=== PATIENT | male | born 1960 | race African-American/Black ===

== ENCOUNTER 2017-01-02 17:07 | Emergency (ER) | payer OTHER ==
--- NOTE | 2017-01-02 18:09 | PHYS DOC ---
Past Medical History Past Medical History: No Pertinent History Past Surgical History: No Surgical History Alcohol Use: None Drug Use: None Adult General Chief Complaint Chief Complaint: NOSEBLEED [facility] HPI Patient is a 56 year old bleeding nose from the right naris. He states that he had taken an aspirin lost night. He currently states that the bleeding has stopped. He denies any history of high blood pressure as though his blood pressure is elevated at this time. He denies any nasal congestion denies any runny noses denies any headaches chest pain shortness of air difficulty breathing. Review of Systems Review of Systems Constitutional: Denies fever or chills [] Eyes: Denies change in visual acuity, redness, or eye pain [] HENT: Denies nasal congestion or sore throat. Complaint of nosebleed Respiratory: Denies cough or shortness of breath [] Cardiovascular: No additional information not addressed in HPI [] GI: Denies abdominal pain, nausea, vomiting, bloody stools or diarrhea [] : Denies dysuria or hematuria [] Musculoskeletal: Denies back pain or joint pain [] Integument: Denies rash or skin lesions [] Neurologic: Denies headache, focal weakness or sensory changes [] Endocrine: Denies polyuria or polydipsia [] Allergies Allergies Allergies Coded Allergies Type Severity Reaction Last Updated Verified No Known Drug Allergies 10/20/13 No Physical Exam Physical Exam Constitutional: Well developed, well nourished, no acute distress, non-toxic appearance. [] HENT: Normocephalic, atraumatic, bilateral external ears normal, oropharynx moist, no oral exudates, nose normal. Left naris appears to be red and inflamed , right nares appears to have blood clots noted. No active bleeding noted at this time. Throat appears to be clear with no drainage no discharge no erythematous, no exudate noted. Eyes: PERRLA, EOMI, conjunctiva normal, no discharge. [] Neck: Normal range of motion, no tenderness, supple, no stridor. [] Cardiovascular:Heart rate regular rhythm, no murmur [] Lungs & Thorax: Bilateral breath sounds clear to auscultation [] Skin: Warm, dry, no erythema, no rash. [] Back: No tenderness Extremities: No tenderness, no cyanosis, no clubbing, ROM intact, no edema. [] Neurologic: Alert and oriented X 3, normal motor function, normal sensory function, no focal deficits noted. [] Psychologic: Affect normal, judgement normal, mood normal. [] Current Patient Data Vital Signs Vital Signs Date Time Temp Pulse Resp B/P (MAP) Pulse Ox O2 Delivery O2 Flow Rate FiO2 01/02/17 19:06 87 18 161/106 (124) 97 Room Air 01/02/17 17:27 98.3 98.3 Lab Values Laboratory Tests Test 01/02/17 18:45 White Blood Count 6.6 x10^3/uL (4.0-11.0) Red Blood Count 4.32 x10^6/uL (4.30-5.70) Hemoglobin 14.7 g/dL (13.0-17.5) Hematocrit 42.6 % (39.0-53.0) Mean Corpuscular Volume 99 fL (79-100) Mean Corpuscular Hemoglobin 34 pg (25-35) Mean Corpuscular Hemoglobin Concent 35 g/dL (31-37) Red Cell Distribution Width 14.2 % (11.5-14.5) Platelet Count 175 x10^3/uL (140-400) Neutrophils (%) (Auto) 72 % (31-73) Lymphocytes (%) (Auto) 20 % (24-48) L Monocytes (%) (Auto) 7 % (0-9) Eosinophils (%) (Auto) 0 % (0-3) Basophils (%) (Auto) 0 % (0-3) Neutrophils # (Auto) 4.8 x10^3uL (1.8-7.7) Lymphocytes # (Auto) 1.3 x10^3/uL (1.0-4.8) Monocytes # (Auto) 0.4 x10^3/uL (0.0-1.1) Eosinophils # (Auto) 0.0 x10^3/uL (0.0-0.7) Basophils # (Auto) 0.0 x10^3/uL (0.0-0.2) Laboratory Tests 01/02/17 18:45 EKG EKG [] Radiology/Procedures Radiology/Procedures [] Course & Med Decision Making Course & Med Decision Making Pertinent Labs and Imaging studies reviewed. (See chart for details) Patient denies any headache, shortness of air difficulty breathing chest pain or chest discomfort. Denies any swelling in his lower extremities. No bloody nose noted for this patient while here in the emergency department. PT/INR is normal CBC is normal. Patient will be discharged home with recommendations to monitor blood pressure and follow-up with his primary care physician. Patient was also instructed to return back to the emergency department if he develops increased bloody nose. Patient was provided with signs and symptoms to return back and precautions. Patient agrees with discharge instructions treatment regimens and follow-up recommendations. [] Dragon Disclaimer Dragon Disclaimer This electronic medical record was generated, in whole or in part, using a voice recognition dictation system. Departure Departure Impression: Primary Impression: Epistaxis Disposition: HOME, SELF-CARE Condition: STABLE Referrals: NO PCP (PCP) Patient Instructions: Nosebleed, [id number] Additional Instructions: Activity as tolerated. Monitor your blood pressure at home and follow-up with your primary care physician in regards to elevation of your blood pressure. She developed a bloody nose again apply pressure to thepolice 20 minutes. If that does not subside place ice packs to the parents as well and return to emergency department. Follow-up to primary care physician in the next 3-5 days. Return back to emergency prior signs and symptoms of become worse. BK PETERSON APRN Jan 02, 2017 18:09
[2017-01-02 19:00] LABS: BASO % 0 % (0-3); EOS % 0 % (0-3); HEMATOCRIT 42.6 % (39.0-53.0); HEMOGLOBIN 14.7 g/dL (13.0-17.5); LYMPH # 1.3 x10^3/uL (1.0-4.8); LYMPH % 20 % (24-48); MEAN CORPUSCULAR HEMOGLOBIN 34 pg (25-35); MEAN CORPUSCULAR HGB CONC 35 g/dL (31-37); MEAN CORPUSCULAR VOLUME 99 fL (79-100); MONO % 7 % (0-9); NEUT % 72 % (31-73); PLATELET COUNT 175 x10^3/uL (140-400); RED BLOOD COUNT 4.32 x10^6/uL (4.30-5.70); RED CELL DISTRIBUTION WIDTH 14.2 % (11.5-14.5); WHITE BLOOD COUNT 6.6 x10^3/uL (4.0-11.0)
[2017-01-02 19:06] VITALS: BP 161/106
[2017-01-02 19:17] LABS: INR 1.1 (0.8-1.1); PROTHROMBIN TIME PATIENT 13.2 SEC (11.7-14.0)
[2017-01-02] MEDS ORDERED: AMLO5TAB4 PO (19:36)
== END 2017-01-02 19:38 | disposition home or self-care (01) ==
LOC: ER 17:07
DX: R04.0 Epistaxis (principal)
CPT/HCPCS: 36415; 85027; 85610; 99284

== ENCOUNTER 2017-01-03 12:15 | Emergency (ER) | payer OTHER ==
[~2017-01-03] VITALS: Ht 190.5 cm; Wt 89.4 kg
[~2017-01-03 12:15] MED LIST: AMLO5TAB4 PO
[2017-01-03 12:32] VITALS: BP 135/92
--- NOTE | 2017-01-03 13:29 | PHYS DOC ---
Past Medical History Past Medical History: Hypertension Past Surgical History: No Surgical History Alcohol Use: None Drug Use: None Adult General Chief Complaint Chief Complaint: NOSEBLEED HPI HPI Patient is a 56 year old male who was brought by a friend to the ED with the complaint of nosebleed. The patient was seen yesterday with a nosebleed which had stopped by the time he got here. His blood pressure was a little elevated. He was started on blood pressure medication which she didn't fill and has taken as directed. Last evening, he had some nosebleed that stopped on its own in a few minutes. Today, he developed some nosebleed again and decided to come back to be seen again. By the time he got here, his nose had stopped bleeding. Patient does not take any blood thinners. He denies any bleeding elsewhere. He has no other complaints. Review of Systems Review of Systems Constitutional: Denies fever or chills [] Eyes: Denies change in visual acuity, redness, or eye pain [] HENT: As in history of present illness Respiratory: Denies cough or shortness of breath [] Cardiovascular: Denies chest pain Current Medications Current Medications Current Medications Medications (Trade) Dose Ordered Sig/Bebo Start Time Stop Time Status Last Admin Dose Admin Oxymetazoline HCl (Afrin) 2 spray 1X ONCE 01/03/17 13:30 01/03/17 13:31 DC 01/03/17 13:34 2 SPRAY Silver Nitrate/ Potassium Nitrate 1 each 1X ONCE 01/03/17 13:30 01/03/17 13:31 DC 01/03/17 13:35 1 EACH Tetracaine HCl (Tetracaine) 1 drop 1X ONCE 01/03/17 13:30 01/03/17 13:31 DC 01/03/17 13:35 1 DROP Allergies Allergies Allergies Coded Allergies Type Severity Reaction Last Updated Verified No Known Drug Allergies 10/20/13 No Physical Exam Physical Exam Constitutional: Well developed, well nourished, no acute distress, non-toxic appearance. Alert, mentating normally, no bleeding at this time. HENT: Normocephalic, atraumatic, bilateral external ears normal, external nose normal, inspection of right naris shows a recently bleeding area on the anterior aspect of the right septum at Kiesselbach's plexus, normal in appearance except for a small blood clot. Eyes: conjunctiva normal, no discharge. [] Neck: Normal range of motion, no stridor. [] Skin: Warm, dry, no erythema, no rash. [] Extremities: No tenderness, no cyanosis, no clubbing, ROM intact, no edema. [] Neurologic: Alert and oriented X 3, normal motor function, normal sensory function, no focal deficits noted. [] Current Patient Data Vital Signs Vital Signs Date Time Temp Pulse Resp B/P (MAP) Pulse Ox O2 Delivery O2 Flow Rate FiO2 01/03/17 12:32 98.2 100 20 96 Room Air 98.2 EKG EKG [] Radiology/Procedures Radiology/Procedures Procedure: Epistaxis treatment. Tetracaine was placed on the septum and allowed to work for a few minutes. Silver nitrate stick was used to cauterize the area of recent bleeding. The patient tolerated the procedure well. There is no further epistaxis after the procedure. [] Course & Med Decision Making Course & Med Decision Making Pertinent Labs and Imaging studies reviewed. (See chart for details) 56-year-old male who returns for nose bleed which has now stopped on its own. I educated the patient on management of nosebleed. See instructions for plan. I sent him home with a plastic nose clamp and showed them how to use it should epistaxis recur. [] Dragon Disclaimer Dragon Disclaimer This electronic medical record was generated, in whole or in part, using a voice recognition dictation system. Departure Departure Impression: Primary Impression: Epistaxis Disposition: HOME, SELF-CARE Condition: IMPROVED Referrals: NO PCP (PCP) Patient Instructions: Nosebleed, [id number] Additional Instructions: As we discussed, once a nosebleed starts, it tends to continue to go off and on for a few days because the blood vessel is very close to the surface. Today, we cauterized the blood vessel which might help keep it from happening again. Try to not blow your nose, don't pick your nose, don't put anything up your nose , because that might disturb it and make it bleed again. If bleeding starts again, do this. 1. Blow your nose to get the clots out. 2. Put 2 sprays of decongestant nasal spray at the side of your nose that is bleeding. 3. Immediately put the clamp on your nose and leave it on for 15-20 minutes. 4. After 20 minutes, you may remove the clamp and see if the bleeding has stopped. 5. If it is still bleeding, repeat the steps above with the sprays and the clamp If you are not able to get it stopped, return to emergency. OLIVERIO ROLDAN MD Jan 03, 2017 13:29
[2017-01-03] MEDS ORDERED: SILVER NITRATE STICK TP ONE (13:30)
[2017-01-03] MEDS ORDERED: OXYMETAZOLINE 0.05% NASAL SPRAY 30ML BOTTLE. NS ONE (13:30)
[2017-01-03] MEDS ORDERED: TETRACAINE 0.5% OPHTH SOLUTION 4ML BOTTLE. OD ONE (13:30)
== END 2017-01-03 13:48 | disposition home or self-care (01) ==
LOC: ER 12:15
DX: R04.0 Epistaxis (principal); I10 Essential (primary) hypertension
CPT/HCPCS: 30901; 99284-25

== ENCOUNTER 2018-07-22 10:31 | Day surgery (SDC) | payer OTHER ==
[~2018-07-22 10:31] MED LIST changes: +HYDROmorphone 2 MG/ML VIAL IV PRN; +IV RINGERS,LACTATED 1000ML 1,000 ML IV SCH; +LIDOCAINE 1% PF 2 ML VIAL. ID PRN; +LIDOCAINE 2% PF Vial for OR 5 ML VIAL. ONE; +MORPHINE SULFATE 4 MG/ML VIAL. IV PRN; +OMEG1CAP27 PO; +ONDANSETRON PF 4 MG/2 ML VIAL. IV PRN; +PROCHLORPERAZINE 10 MG/2 ML VIAL. IV PRN; +PROPOFOL 20 ML IV ONE; +fentaNYL PF VIAL 100 MCG/2 ML VIAL IV PRN
[2018-07-22] MEDS ORDERED: silver sulfADIAZINE 1% CREAM 25GM TUBE. TP ONE (12:42)
[2018-07-22] MEDS ORDERED: MIDAZOLAM HCL/PF 2 MG/2 ML VIAL. ONE (13:07)
[2018-07-22] MEDS ORDERED: SEVOFLURANE 16 TO 30 MINUTES. IH ONE (13:17)
[2018-07-22] MEDS ORDERED: DEXAMETHASONE SOD PHOS 20 MG/5 ML VIAL. ONE (13:17)
[2018-07-22] MEDS ORDERED: ONDANSETRON PF 4 MG/2 ML VIAL. ONE (13:17)
[2018-07-22] MEDS ORDERED: LIDOCAINE 1% 20 ML VIAL. ONE (13:21)
[2018-07-22] MEDS ORDERED: NEOMY/BACITR/POLYMYXIN OINT PACKET. TP ONE ×2 (13:28→13:31)
--- NOTE | 2018-07-22 13:32 | PDOC4 ---
OPERATIVE NOTE Date: Date: Jul 22, 2018 Pre-Op Diagnosis: penis wart Post-Op Diagnosis: same Procedure Performed: co2 laser excision of penis warts Surgeon: Anesthesia Type: lma Blood Loss: 0ml Specimans Obtained: wart Findings: penis warts Complications: none ASHLEE TURCIOS MD Jul 22, 2018 13:32
--- NOTE | 2018-07-22 13:35 | DISCH ---
DISCHARGE INSTRUCTIONS Condition on Discharge Condition on Discharge: Stable Wound Incision Care Wound/Incision Care: No wound care needed, Other, see below Wound Care Equipment: Dressings (remove dressing tomorrow) Contacting the DRTammy after DC Call your doctor for: Concerns you may have Follow-Up Follow up with: dr. cerna 2 weeks Treatment/Equipment after DC Adaptive Equipment Issued: None (remove dressing tomorrow am) ASHLEE CERNA MD Jul 22, 2018 13:35
--- NOTE | 2018-07-22 14:17 | OP ---
DATE OF SURGERY: 07/22/2018 PREOPERATIVE DIAGNOSIS: Penis wart. POSTOPERATIVE DIAGNOSIS: Penis wart. PROCEDURE: CO2 laser excision of warts. CONDITION: Stable. COMPLICATIONS: None. SURGEON: Lisa Blake MD. SPECIMEN: Penis warts. DESCRIPTION OF PROCEDURE: The patient was taken back to the procedure room and placed supine position per the protocol. He was prepped and draped in usual sterile fashion. A 10 mL of lidocaine 2% was placed as a penis nerve block. There were 3-4 penis warts, each were grabbed individually and were excised with a laser fiber with suction on the whole time. There was excellent hemostasis, good cosmesis. The patient tolerated the procedure well. Topical antibiotic was applied with some Kerlix dressing. He may remove it in the morning. The patient was awakened and taken to PACU in stable condition. LISA BLAKE MD DR: BONNY/nts JOB#: [id number] / [id number]
[2018-07-22 14:30] VITALS: BP 156/96
--- NOTE | 2018-07-23 15:09 | PATHOLOGY ---
[facility] Accession Number: [id number] . 01 Material submitted: . PENILE WART . 01 Clinical history: . Warts . 02 Diagnosis: Skin, penile lesion excision: - Condyloma. - Chronic inflammation, focal. [facility]/07/23/2018 . 02 Comment: There is no evidence of malignancy. ([facility]PM:[facility] 07/23/2018) . 02 Electronically signed: . Henri Ann MD, Pathologist NPI- [id number] . 01 Gross description: . The specimen is received in formalin, labeled "Kyle, Haseeb, penile wart", is an irregular fragment of friable tissue measuring 0.8 x 0.4 x 0.3 cm. The specimen is inked black,longitudinally bisected and entirely submitted in A1. ([facility]; 07/22/2018) [facility] . 02 Pathologist provided ICD-10: A63.0, N48.29 . 02 CPT . 872537 Specimen Comment: A courtesy copy of this report has been sent to Specimen Comment: [phone]. Specimen Comment: Report sent to Performed at: [facility] [address], [place] [id number] MD Kamran Pollard MD Phone: [phone] Performed at: [facility] [address] [place], [place] [id number] MD Henri Ann MD Phone: [phone]
== END 2018-07-22 14:45 | disposition home or self-care (01) ==
LOC: SURG 10:31
PROVIDERS: ATTEND Urology
DX: A63.0 Anogenital (venereal) warts (principal); N48.29 Other inflammatory disorders of penis; I10 Essential (primary) hypertension; Z82.49 Family history of ischemic heart disease and other diseases of the circulatory system; Z72.89 Other problems related to lifestyle
CPT/HCPCS: 54057; 88305; A7015; J0690; J1100; J2001; J2250; J2405; J2704; J0696; A4461

== ENCOUNTER 2020-10-24 16:17 | Emergency (ER) | payer OTHER ==
[~2020-10-24] VITALS: Ht 191.8 cm; Wt 86.0 kg
[~2020-10-24 16:17] MED LIST changes: -HYDROmorphone 2 MG/ML VIAL IV PRN; -IV RINGERS,LACTATED 1000ML 1,000 ML IV SCH; -LIDOCAINE 1% PF 2 ML VIAL. ID PRN; -LIDOCAINE 2% PF Vial for OR 5 ML VIAL. ONE; -MORPHINE SULFATE 4 MG/ML VIAL. IV PRN; -ONDANSETRON PF 4 MG/2 ML VIAL. IV PRN; -PROCHLORPERAZINE 10 MG/2 ML VIAL. IV PRN; -PROPOFOL 20 ML IV ONE; -fentaNYL PF VIAL 100 MCG/2 ML VIAL IV PRN
[2020-10-24 18:00] VITALS: BP 144/91
[2020-10-24] MEDS ORDERED: NAPR-514 PO (19:46)
[2020-10-24] MEDS ORDERED: CYCL10TA2 PO (19:46)
--- NOTE | 2020-10-24 19:46 | ED.ADGEN ---
Past Medical History Past Medical History: Hypertension Past Surgical History: No Surgical History Smoking Status: Current Every Day Smoker Alcohol Use: None Drug Use: None General Adult EDM: Chief Complaint: BACK PAIN OR INJURY HPI: HPI: Patient is a 60 year old [f__sex] who presents with [] Review of Systems: Review of Systems: Constitutional: Denies fever or chills. [] Eyes: Denies change in visual acuity. [] HENT: Denies nasal congestion or sore throat. [] Respiratory: Denies cough or shortness of breath. [] Cardiovascular: Denies chest pain or edema. [] GI: Denies abdominal pain, nausea, vomiting, bloody stools or diarrhea. [] : Denies dysuria. [] Musculoskeletal: Denies back pain or joint pain. [] Integument: Denies rash. [] Neurologic: Denies headache, focal weakness or sensory changes. [] Endocrine: Denies polyuria or polydipsia. [] Lymphatic: Denies swollen glands. [] Psychiatric: Denies depression or anxiety. [] Allergies: Allergies: Allergies Coded Allergies Type Severity Reaction Last Updated Verified No Known Drug Allergies 07/22/18 No Physical Exam: PE: Constitutional: Well developed, well nourished, no acute distress, non-toxic appearance. [] HENT: Normocephalic, atraumatic, bilateral external ears normal, oropharynx moist, no oral exudates, nose normal. [] Eyes: PERRLA, EOMI, conjunctiva normal, no discharge. [] Neck: Normal range of motion, no tenderness, supple, no stridor. [] Cardiovascular:Heart rate regular rhythm, no murmur [] Lungs & Thorax: Bilateral breath sounds clear to auscultation [] Abdomen: Bowel sounds normal, soft, no tenderness, no masses, no pulsatile masses. [] Skin: Warm, dry, no erythema, no rash. [] Back: No tenderness, no CVA tenderness. [] Extremities: No tenderness, no cyanosis, no clubbing, ROM intact, no edema. [] Neurologic: Alert and oriented X 3, normal motor function, normal sensory function, no focal deficits noted. [] Psychologic: Affect normal, judgement normal, mood normal. [] EKG: EKG: [] Heart Score: Risk Factors: Risk Factors: DM, Current or recent (<one month) smoker, HTN, HLP, family history of CAD, obesity. Risk Scores: Score 0 - 3: 2.5% MACE over next 6 weeks - Discharge Home Score 4 - 6: 20.3% MACE over next 6 weeks - Admit for Clinical Observation Score 7 - 10: 72.7% MACE over next 6 weeks - Early Invasive Strategies Radiology/Procedures: Radiology/Procedures: [] Course & Med Decision Making: Course & Med Decision Making Pertinent Labs and Imaging studies reviewed. (See chart for details) [] Dragon Disclaimer: Dragon Disclaimer: This electronic medical record was generated, in whole or in part, using a voice recognition dictation system. Departure Departure Impression: Primary Impression: Low back pain Disposition: HOME / SELF CARE / HOMELESS Condition: STABLE Referrals: UNKNOWN PCP NAME (PCP) Patient Instructions: Back Exercises, [id number], Back Pain, Adult, [id number] Additional Instructions: Fill the prescription(s) and use as directed. Apply heat or ice for to sore areas as needed for comfort. Activity as tolerated. Follow up with your primary care doctor this week if symptoms persist, return to the ER if symptoms worsen or you develop a fever. Scripts Naproxen (NAPROXEN) 500 Mg Tablet 1 TAB PO BID PRN for PAIN for 10 Days, #20 TAB 0 Refills Prov: SUYAPA TERRY APRN 10/24/20 Cyclobenzaprine Hcl (CYCLOBENZAPRINE HCL) 10 Mg Tablet 1 TAB PO TID PRN for MUSCLE PAIN for 10 Days, #30 TAB 0 Refills Prov: SUYAPA TERRY APRN 10/24/20 Problem Qualifiers Primary Impression: Low back pain Chronicity: acute Back pain laterality: bilateral Sciatica presence: without sciatica Qualified Codes: M54.5 - Low back pain SUYAPA TERRY APRN Oct 24, 2020 19:46
== END 2020-10-24 20:00 | disposition home or self-care (01) ==
LOC: ER 16:17
DX: M54.5 Low back pain (principal); I10 Essential (primary) hypertension; F17.200 Nicotine dependence, unspecified, uncomplicated
CPT/HCPCS: 99283

== ENCOUNTER 2021-11-14 13:26 | Emergency (ER) | payer OTHER ==
[~2021-11-14] VITALS: Ht 193 cm; Wt 85.0 kg
[~2021-11-14 13:26] MED LIST changes: +CYCL10TA19 PO; +NAPR-514 PO
[2021-11-14] MEDS ORDERED: FAMOTIDINE 20 MG/2 ML VIAL IVP ONE (14:00)
[2021-11-14] MEDS ORDERED: ACETAMINOPHEN 500 MG TABLET PO ONE (14:00)
[2021-11-14] MEDS ORDERED: ONDANSETRON PF 4 MG/2 ML VIAL. IVP ONE (14:00)
[2021-11-14] MEDS ORDERED: IV NORMAL SALINE 1000ML BAG 1,000 ML IV ONE (14:00)
[2021-11-14 14:21] LABS: BASO # 0.1 x10^3/uL (0.0-0.2); BASO % 1 % (0-3); EOS % 0 % (0-3); HEMATOCRIT 44.3 % (39.0-53.0); HEMOGLOBIN 15.5 g/dL (13.0-17.5); LYMPH # 1.1 x10^3/uL (1.0-4.8); LYMPH % 9 % (24-48); MEAN CORPUSCULAR HEMOGLOBIN 34 pg (25-35); MEAN CORPUSCULAR HGB CONC 35 g/dL (31-37); MEAN CORPUSCULAR VOLUME 98 fL (79-100); MONO # 1.5 x10^3/uL (0.0-1.1); MONO % 12 % (0-9); NEUT # 9.7 x10^3/uL (1.8-7.7); NEUT % 79 % (31-73); PLATELET COUNT 191 x10^3/uL (140-400); RED BLOOD COUNT 4.53 x10^6/uL (4.30-5.70); RED CELL DISTRIBUTION WIDTH 13.6 % (11.5-14.5); WHITE BLOOD COUNT 12.3 x10^3/uL (4.0-11.0)
[2021-11-14 14:37] LABS: INFLUENZA A PATIENT NEGATIVE (NEGATIVE); INFLUENZA B PATIENT NEGATIVE (NEGATIVE)
[2021-11-14 14:42] LABS: CALCIUM 9.2 mg/dL (8.5-10.1); CREATININE 1.1 mg/dL (0.7-1.3); GFR 82.9; POTASSIUM 3.4 mmol/L (3.5-5.1)
[2021-11-14 14:47] LABS: ALBUMIN 3.5 g/dL (3.4-5.0); ALBUMIN/GLOBULIN RATIO 0.8 (1.0-1.7); TOTAL BILIRUBIN 1.5 mg/dL (0.2-1.0); TOTAL PROTEIN 8.1 g/dL (6.4-8.2)
--- NOTE | 2021-11-14 15:10 | RAD ---
Single view chest dated 11/14/2021 3:07 PM: COMPARISON: None Clinical Indication: Cough. Findings: Single upright portable exam of the chest was performed. Heart size and mediastinal contours are with in normal limits. Lungs are clear. No consolidation or pleural effusion. No pneumothorax. IMPRESSION: No acute radiographic abnormality. Electronically signed by: Vinh Osei MD (11/14/2021 3:08 PM) DENISE
[2021-11-14 15:11] LABS: BILIRUBIN,URINE NEGATIVE (NEG); CLARITY,URINE CLEAR; COLOR,URINE YELLOW; NITRITE,URINE NEGATIVE (NEG); PROTEIN,URINE NEGATIVE (NEG-TRACE)
[2021-11-14 15:12] LABS: BACTERIA,URINE 0 /HPF (0-FEW); WBC,URINE 0 /HPF (0-4)
[2021-11-14 15:13] LABS: RBC,URINE OCC /HPF (0-2)
[2021-11-14] MEDS ORDERED: IOHEXOL 300 MG/ML 100ML VIAL. IV ONE (15:15)
[2021-11-14] MEDS ORDERED: CONTRAST GIVEN. MC PRN (15:30)
[2021-11-14] MEDS ORDERED: ONDA4TAB12 PO (15:45)
--- NOTE | 2021-11-14 15:45 | PHYS DOC ---
Past Medical History Past Medical History: Hypertension Past Surgical History: No Surgical History Smoking Status: Never Smoker Alcohol Use: None Drug Use: None General Adult EDM: Chief Complaint: FLU SYMPTOM HPI: HPI: Patient is a 61 year old male with history of hypertension presenting to the ED today complaining of nausea, vomiting, diarrhea, And generalized abdominal pain, symptoms began Friday, patient denies any fever. Denies any hematemesis or melena. States the abdominal pain and nausea and vomiting are improving. Review of Systems: Review of Systems: Constitutional: Reports chills Eyes: Denies change in visual acuity. [] HENT: Denies nasal congestion or sore throat. [] Respiratory: Denies cough or shortness of breath. [] Cardiovascular: Denies chest pain or edema. [] GI: Reports abdominal pain, nausea and vomiting, denies bloody stools or diarrhea. [] : Denies dysuria. [] Musculoskeletal: Denies back pain or joint pain. [] Integument: Denies rash. [] Neurologic: Denies headache, focal weakness or sensory changes. [] Psychiatric: Denies depression or anxiety. [] Heart Score: C/O Chest Pain: N/A Risk Factors: Risk Factors: DM, Current or recent (<one month) smoker, HTN, HLP, family history of CAD, obesity. Risk Scores: Score 0 - 3: 2.5% MACE over next 6 weeks - Discharge Home Score 4 - 6: 20.3% MACE over next 6 weeks - Admit for Clinical Observation Score 7 - 10: 72.7% MACE over next 6 weeks - Early Invasive Strategies Current Medications: Current Medications Medications (Trade) Dose Ordered Sig/Bebo Start Time Stop Time Status Last Admin Dose Admin Acetaminophen (Tylenol) 1,000 mg 1X ONCE 11/14/21 14:00 11/14/21 14:01 DC 11/14/21 14:10 1,000 MG Famotidine (Pepcid Vial) 20 mg 1X ONCE 11/14/21 14:00 11/14/21 14:01 DC 11/14/21 14:10 20 MG Info (CONTRAST GIVEN -- Rx MONITORING) 1 each PRN DAILY PRN 11/14/21 15:30 11/16/21 15:29 Iohexol (Omnipaque 300 Mg/ml) 75 ml 1X ONCE 11/14/21 15:15 11/14/21 15:18 DC Ondansetron HCl (Zofran) 4 mg 1X ONCE 11/14/21 14:00 11/14/21 14:01 DC 11/14/21 14:10 4 MG Sodium Chloride 1,000 ml @ 1,000 mls/hr 1X ONCE 11/14/21 14:00 11/14/21 14:59 DC 11/14/21 14:10 1,000 MLS/HR Allergies: Allergies: Allergies Coded Allergies Type Severity Reaction Last Updated Verified No Known Drug Allergies 07/22/18 No Physical Exam: PE: Constitutional: Well developed, well nourished, no acute distress, non-toxic appearance. [] HENT: Normocephalic, atraumatic, bilateral external ears normal, oropharynx moist, no oral exudates, nose normal. [] Eyes: PERRLA, EOMI, conjunctiva normal, no discharge. [] Neck: Normal range of motion, no tenderness, supple, no stridor. [] Cardiovascular:Heart rate regular rhythm, no murmur [] Lungs & Thorax: Bilateral breath sounds clear to auscultation [] Abdomen: Bowel sounds normal, soft, no tenderness, no masses, no pulsatile masses. [] Skin: Warm, dry, no erythema, no rash. [] Back: No tenderness, no CVA tenderness. [] Extremities: No tenderness, no cyanosis, no clubbing, ROM intact, no edema. [] Neurologic: Alert and oriented X 3, normal motor function, normal sensory function, no focal deficits noted. [] Psychologic: Affect normal, judgement normal, mood normal. [] Current Patient Data: Labs: Laboratory Tests Test 11/14/21 14:10 11/14/21 14:45 White Blood Count 12.3 x10^3/uL (4.0-11.0) H Red Blood Count 4.53 x10^6/uL (4.30-5.70) Hemoglobin 15.5 g/dL (13.0-17.5) Hematocrit 44.3 % (39.0-53.0) Mean Corpuscular Volume 98 fL (79-100) Mean Corpuscular Hemoglobin 34 pg (25-35) Mean Corpuscular Hemoglobin Concent 35 g/dL (31-37) Red Cell Distribution Width 13.6 % (11.5-14.5) Platelet Count 191 x10^3/uL (140-400) Neutrophils (%) (Auto) 79 % (31-73) H Lymphocytes (%) (Auto) 9 % (24-48) L Monocytes (%) (Auto) 12 % (0-9) H Eosinophils (%) (Auto) 0 % (0-3) Basophils (%) (Auto) 1 % (0-3) Neutrophils # (Auto) 9.7 x10^3/uL (1.8-7.7) H Lymphocytes # (Auto) 1.1 x10^3/uL (1.0-4.8) Monocytes # (Auto) 1.5 x10^3/uL (0.0-1.1) H Eosinophils # (Auto) 0.0 x10^3/uL (0.0-0.7) Basophils # (Auto) 0.1 x10^3/uL (0.0-0.2) Sodium Level 133 mmol/L (136-145) L Potassium Level 3.4 mmol/L (3.5-5.1) L Chloride Level 95 mmol/L (98-107) L Carbon Dioxide Level 31 mmol/L (21-32) Anion Gap 7 (6-14) Blood Urea Nitrogen 7 mg/dL (8-26) L Creatinine 1.1 mg/dL (0.7-1.3) Estimated GFR (Cockcroft-Gault) 82.9 BUN/Creatinine Ratio 6 (6-20) Glucose Level 128 mg/dL (70-99) H Calcium Level 9.2 mg/dL (8.5-10.1) Magnesium Level 2.0 mg/dL (1.8-2.4) Total Bilirubin 1.5 mg/dL (0.2-1.0) H Aspartate Amino Transferase (AST) 197 U/L (15-37) H Alanine Aminotransferase (ALT) 50 U/L (16-63) Alkaline Phosphatase 73 U/L (46-116) Total Protein 8.1 g/dL (6.4-8.2) Albumin 3.5 g/dL (3.4-5.0) Albumin/Globulin Ratio 0.8 (1.0-1.7) L Lipase 126 U/L (73-393) Influenza Type A Antigen Negative (NEGATIVE) Influenza Type B Antigen Negative (NEGATIVE) SARS-CoV-2 Antigen (Rapid) Negative (NEGATIVE) Urine Collection Type Unknown Urine Color Yellow Urine Clarity Clear Urine pH 6.0 Urine Specific Hermon <=1.005 Urine Protein Negative mg/dL (NEG-TRACE) Urine Glucose (UA) Negative mg/dL (NEG) Urine Ketones (Stick) Negative mg/dL (NEG) Urine Blood Moderate (NEG) Urine Nitrite Negative (NEG) Urine Bilirubin Negative (NEG) Urine Urobilinogen Dipstick 1.0 mg/dL (0.2 mg/dL) Urine Leukocyte Esterase Negative (NEG) Urine RBC Occ /HPF (0-2) Urine WBC 0 /HPF (0-4) Urine Bacteria 0 /HPF (0-FEW) Laboratory Tests 11/14/21 14:10 Laboratory Tests 11/14/21 14:10 Vital Signs: Vital Signs Date Time Temp Pulse Resp B/P (MAP) Pulse Ox O2 Delivery O2 Flow Rate FiO2 11/14/21 13:28 98.8 91 18 135/78 (97) 97 Room Air 98.8 EKG: EKG: [] Radiology/Procedures: Radiology/Procedures: [] Course & Med Decision Making: Course & Med Decision Making Pertinent Labs and Imaging studies reviewed. (See chart for details) This a 61-year-old male patient presenting to the ED today with generalized abdominal pain, nausea, vomiting, body aches, chills, symptoms began on Friday. CBC with a WBC of 12.3, CMP with sodium of 133, K 3.4, glucose 128, bilirubin 1.5, AST 197, ALT and ALK are normal. Chest x-ray is negative. Negative influenza test, negative rapid COVID 19 test. Patient was given IV fluids in the ED, Zofran and Pepcid. He states he is feeling better. Discharged home. Follow-up with his PCP in the course of this week or next week Dragon Disclaimer: David Disclaimer: This electronic medical record was generated, in whole or in part, using a voice recognition dictation system. Departure Departure Impression: Primary Impression: Nausea & vomiting Qualified Codes: R11.2 - Nausea with vomiting, unspecified Additional Impression: Abdominal pain Qualified Codes: R10.84 - Generalized abdominal pain Disposition: HOME / SELF CARE / HOMELESS Condition: STABLE Referrals: Marcelo GRANDE MD (PCP) follow up in one week Patient Instructions: Abdominal Pain (Nonspecific), Nausea and Vomiting, [id number] Additional Instructions: You were evaluated in the emergency room, your symptoms are likely viral. Push fluids, rest, maintain good hand hygiene. Follow-up with your doctor in the course of this week or next week, come back to the ED at any point symptoms worsen Scripts Famotidine (FAMOTIDINE) 20 Mg Tablet 20 MG PO DAILY, #7 TAB Prov: CIERRA GALLO APRN 11/14/21 Ondansetron (ONDANSETRON ODT) 4 Mg Tab.rapdis 1 TAB PO PRN Q6-8HRS, #16 TAB Prov: CIERRA GALLO APRN 11/14/21 CIERRA GALLO APRN November 14, 2021 15:45
[2021-11-14] MEDS ORDERED: FAMO20TA5 PO (15:46)
[2021-11-14 15:52] VITALS: BP 138/77
== END 2021-11-14 15:54 | disposition home or self-care (01) ==
LOC: ER 13:26
DX: R11.2 Nausea with vomiting, unspecified (principal); Z20.822 Contact with and (suspected) exposure to COVID-19; R19.7 Diarrhea, unspecified; R10.84 Generalized abdominal pain; I10 Essential (primary) hypertension
CPT/HCPCS: 36415; 71045; 80053; 81001; 83690; 83735; 85025; 87428; 96361; 96374; 96375; 99284; J2405; J3490; J7030